=== PATIENT | male | born 1940 | race African-American/Black ===

== ENCOUNTER 2018-12-24 12:10 | Inpatient (IN) | payer OTHER ==
[~2018-12-24] VITALS: Ht 165.1 cm; Wt 67.5 kg
[2018-12-24 13:12] LABS: BASOPHILS 0.7 % (0.0-2.0); EOSINOPHILS 0.4 % (0.0-3.0); HEMATOCRIT 34.2 % (42.0-52.0); HEMOGLOBIN 11.3 gm/dL (14.0-18.0); LYMPHOCYTES 13.3 % (24.0-44.0); MCH 27.5 pg (26.0-34.0); MCV 83.4 fL (80.0-100.0); MONOCYTES 9.1 % (1.0-8.0); PLATELET COUNT 315 thou/uL (150-400); POLYS 76.5 % (36.0-66.0); RDW 14.4 % (10.5-14.5); WBC 10.4 thou/uL (4.0-11.0)
[2018-12-24 13:25] LABS: ANION GAP 7 mmol/L (7-16); BUN 46 mg/dL (7-18); CALCIUM 10.6 mg/dL (8.5-10.1); CHLORIDE 105 mmol/L (98-107); CO2 25 mmol/L (21-32); GLUCOSE 109 mg/dL (74-106); POTASSIUM 5.1 mmol/L (3.5-5.1); SODIUM 137 mmol/L (136-145)
[2018-12-24 13:30] VITALS: BP 135/63
[2018-12-24 13:32] LABS: ALBUMIN 2.7 g/dL (3.4-5.0); DIRECT BILIRUBIN < 0.1 mg/dL (<0.1-0.3); LIPASE 185 U/L (73-393); SGOT 19 U/L (15-37); SGPT 24 U/L (30-65); TOTAL BILIRUBIN 0.3 mg/dL (<0.1-1.0); TOTAL PROTEIN 7.6 g/dL (6.4-8.2)
[2018-12-24] MEDS ORDERED: HYDROCHLOROTHIA25 M2 PO (13:34)
[2018-12-24] MEDS ORDERED: LOSARTAN POTAS100 MG PO (13:34)
[2018-12-24] MEDS ORDERED: AMLODIPINE BESY10 MG PO (13:34)
[2018-12-24 14:00] VITALS: BP 138/68
[2018-12-24 14:10] VITALS: BP 142/59
[2018-12-24 14:40] VITALS: BP 169/65
[2018-12-24] MEDS ORDERED: LIPITOR 20 MG T20 M1 PO (15:05)
[2018-12-24] MEDS ORDERED: OMEPRAZOLE40 MG PO (15:06)
--- NOTE | 2018-12-24 18:22 | NUR ---
PATIENT ADIMIT TO UNIT AT 1450 FROM ER. A/O X4. NO SOB, NO DISDRESS NOTED. CONGESTED COUGH. DENIES PAIN. VSS. GUERDA KEEP MONITOR.
[2018-12-24 19:28] VITALS: BP 141/61
[2018-12-25 00:26] LABS: URINE BILIRUBIN NEGATIVE (Negative); URINE BLOOD NEGATIVE (Negative); URINE CLARITY CLEAR; URINE COLOR YELLOW; URINE GLUCOSE-RANDOM* NEGATIVE (Negative); URINE KETONES NEGATIVE (Negative); URINE LEUKOCYTES-REFLEX NEGATIVE (Negative); URINE NITRITE-REFLEX NEGATIVE (Negative); URINE PROTEIN (DIPSTICK) NEGATIVE (Negative); URINE SPECIFIC GRAVITY 1.015 (1.005-1.035); URINE UROBILINOGEN 0.2 E.U./dl (0.2-1.0)
--- NOTE | 2018-12-25 00:26 | NUR ---
PT AMBULATING TO BATHROOM WITH STANDBY ASSIST AND IS TOLERATING FAIR. TYLENOL PROVIDING RELIEF FOR RIGHT FLANK PAIN R/T COUGHING. RESTING COMFORTABLY. NO NEEDS VOICED. CALL LIGHT WITHIN REACH. WILL CONTINUE TO PROVIDE FREQUENT OBSERVATION.
[2018-12-25 03:19] VITALS: BP 129/57
[2018-12-25 05:24] LABS: HEMATOCRIT 29.2 % (42.0-52.0); HEMOGLOBIN 9.6 gm/dL (14.0-18.0); MCH 27.6 pg (26.0-34.0); MCV 83.6 fL (80.0-100.0); RBC 3.49 mil/uL (4.50-6.00); RDW 14.5 % (10.5-14.5); WBC 9.6 thou/uL (4.0-11.0)
[2018-12-25 05:41] LABS: ALBUMIN 2.1 g/dL (3.4-5.0); CALCIUM 9.5 mg/dL (8.5-10.1); TOTAL BILIRUBIN 0.3 mg/dL (<0.1-1.0); TOTAL PROTEIN 6.4 g/dL (6.4-8.2)
[2018-12-25 07:42] VITALS: BP 135/61
--- NOTE | 2018-12-25 08:04 | EKG ---
[address] [place] [address] ELECTROCARDIOGRAM REPORT Name: EMMETT VIEYRA Room #: 356-P ADM IN M.R.#: [id number] ������������������ Admission: 12/24/18 ������������������ Attend Phys: Shawnee Yousif MD Discharge: ������������������ Date of : 38 Report #: [id number] ����������������������������������������������������������������� [id number] THIS REPORT FOR: //name// [facility] ED Test Date: 2018-12-24 Test Time: 12:35:50 Pat Name: EMMETT VIEYRA Department: Room: 356 Gender: M Manager Of Internal Audit: Sohail Valdes : 1940 Requested By: Maykel Lantigua Order Number: [id number] MD: Tee Dixon Measurements Intervals [place] Rate: 88 P: 28 [place]: 186 QRS: 18 QRSD: 89 T: 67 QT: 338 QTc: 409 Interpretive Statements Sinus rhythm Borderline low voltage, extremity leads Compared to ECG 12/24/1998 09:07:00 Sinus bradycardia no longer present Electronically Signed On 12-25-2018 8:03:48 CDT by Tee Dixon [email or web address] ��������������������������������������������� <ELECTRONICALLY SIGNED> ���������������������������������������� By: Tee Dixon MD ��������������������������������������������� 12/25/18 08 1235 1235 Tee Dixon MD /CUCO
[2018-12-25 09:43] LABS: INR 1.1; PROTIME 11.5 Seconds (9.3-11.4)
--- NOTE | 2018-12-25 15:47 | NUR ---
INITIAL ASSESSMENT: SW reviewed chart and spoke with nursing and attending physician. Pt was admitted from home due to pneumonia/right sided pleural effusion. Pt with hx of CHF. Pt had thoracentesis earlier today. SW met with pt and at bedside. Introduced role of SW. Pt is alert/orientated x 4. Pt reports he and his live in a two level home. 2 steps to enter and 12 steps inside. Pt states that all needs can be met on one level. Prior to admission, pt was independent with ADLs. No use of DME. No hx of HH services or SNF/Rehab placement. Pt's PCP is Dr. Walt Cross. Plan is for pt to return home when medically stable. SW is following to assist as needed with discharge planning.
[2018-12-25 16:26] LABS: CLARITY CLOUDY; COLOR YELLOW; SOURCE RIGHT CHEST; TOTAL VOLUME 60 mL
[2018-12-25 16:30] VITALS: BP 144/61
[2018-12-25 16:32] LABS: BF NUCLEATED CELLS 996; BF RBC 1110
[2018-12-25 18:05] LABS: BF MACROPHAGE 6; BF NEUTROPHILS 73
--- NOTE | 2018-12-25 18:20 | NUR ---
PATIENT HAD RIGHT THORACENTESIS TODAY .TOLERATED WELL. NO SOB NOTED. POOR APPETITE. UP WITH STB. VSS. SLOWLY TOWARDS POC GOALS.
[2018-12-25 20:05] VITALS: BP 141/75
--- NOTE | 2018-12-26 04:31 | NUR ---
PT MAKING PROGRESS TOWARDS GOALS. ON ROOM AIR OVERNIGHT. PT REPORTS BREATHING MUCH EASIER SINCE THORACENTESIS WAS DONE. ONE EPISODE OF STERNAL DISCOMFORT. PT SAID HE FELT LIKE HE HAD ACID INDIGESTION SOON AFTER DRINKING A CHOCOLATE ENSURE. SENSATION SLIGHTLY RELIEVED WITH DRINKING SOME WATER. SENSATION ENDED AFTER TAKING ONE DOSE OF MAALOX.
[2018-12-26 05:28] LABS: HEMATOCRIT 28.3 % (42.0-52.0); HEMOGLOBIN 9.4 gm/dL (14.0-18.0); MCH 27.5 pg (26.0-34.0); MCHC 33.2 g/dL (28.0-37.0); MCV 82.7 fL (80.0-100.0); RBC 3.42 mil/uL (4.50-6.00); RDW 14.1 % (10.5-14.5); WBC 8.8 thou/uL (4.0-11.0)
[2018-12-26 05:30] VITALS: BP 133/63
[2018-12-26 05:45] LABS: CREATININE 2.1 mg/dL (0.7-1.3); POTASSIUM 4.4 mmol/L (3.5-5.1)
[2018-12-26 06:12] LABS: FOLIC ACID 15.6 ng/mL (8.6-58.9)
--- NOTE | 2018-12-26 07:00 | HC ---
[facility] [place] [address] CONSULTATION Name: AZALIAEMMETT Room #: 356-P [facility] IN M.R.#: [id number] Admission: 12/24/18 ������������������ Attend Phys: Shawnee Yousif MD Discharge: ������������������ Date of : 38 Report #: [id number] THIS REPORT FOR: //name// CC: Jeffrey Yousif DATE OF SERVICE: 12/25/2018 REFERRING PHYSICIAN: Dr. Yousif. REASON FOR REFERRAL: Pleural effusion. HISTORY OF PRESENT ILLNESS: The patient is an 78-year-old male who presents to the Emergency Room with a cough and dyspnea. Chest x-ray revealed right sided pleural effusion. A pulmonary consultation was requested. The patient was in his usual state of health until about 4 weeks ago, he started to lose his appetite. He states that he has lost about 15 pounds over the past month. Over the past week or so, he started to notice increasing dyspnea on exertion along with nonproductive cough. With worsening symptoms, he presented to the Emergency Room. He also complained of right shoulder pain with movement, also complained of right shoulder discomfort. Otherwise, the patient denies any febrile illness, night sweats or chills, productive cough, hemoptysis. The patient has smoked half a pack a day for most of his life until about 4 weeks ago. 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 PAST MEDICAL HISTORY: As mentioned above. He has a history of hypertension. Also, has a history of chronic reflux. PAST SURGICAL HISTORY: Status post prostatectomy years ago. ALLERGIES: None to medications. HOME MEDICATIONS: Include hydrochlorothiazide, amlodipine, losartan, Lipitor, omeprazole, hydrochlorothiazide 25 mg once a day, amlodipine 10 mg once a day, losartan 100 mg once a day, Lipitor 20 mg once a day, omeprazole harr-qyb-uoiymlm one tablet p.o. every day. FAMILY HISTORY: Notable for CVA in both parents. They both . [facility] [address] [place] [address] CONSULTATION Name: EMMETT VIEYRA Room #: 356-[facility] IN M.R.#: [id number] Admission: 12/24/18 ������������������ Attend Phys: Shawnee Yousif MD Discharge: ������������������ Date of : 38 Report #: [id number] SOCIAL HISTORY: Born and raised in [place]. He is . He denies any history of alcohol use. Tobacco use as mentioned above, having quit smoking about a month ago. He is retired, used to work as a crop farm helper at [employer]. REVIEW OF SYSTEMS: As mentioned above, otherwise 10-point system review negative. PHYSICAL EXAMINATION: GENERAL: He is awake, alert, in no distress. VITAL SIGNS: Temperature is 98.2 degrees Fahrenheit, pulse 76, respiratory rate is 16, blood pressure 135/61 mmHg, saturation 95%. HEENT: Normocephalic, atraumatic. NECK: Supple, without any lymphadenopathy or thyromegaly. CHEST: Breath sounds are absent in the right base. The left lung field is clear. CARDIOVASCULAR: Normal S1, S2. There are no murmurs or gallop. There is no JVD. There is no carotid bruit. Pulses are 2+/4+ bilaterally. ABDOMEN: Soft, nontender, no organomegaly or masses felt. GENITOURINARY: Deferred. RECTAL: Deferred. EXTREMITIES: There is no cyanosis or edema. Mild clubbing is suggested on the digits bilaterally. NEUROLOGIC: Grossly intact. LABORATORY DATA: Chest x-ray shows moderate to large right-sided pleural effusion. Electrolytes normal except for creatinine of 2.0. Liver enzymes are grossly unremarkable. WBC 9600, hemoglobin 9.6, platelets are normal. IMPRESSION: 1. Large right pleural effusion in this an 78-year-old male with recent weight loss. He has smoked in the past until 4 weeks ago. No recent febrile illness. Suspect malignancy as a primary cause for these pleural effusion. Agree with thoracentesis. 2. History of tobacco use, based on PFTs as an outpatient will be helpful. 3. Renal insufficiency. No prior history of chronic renal disease. This may be acute kidney injury. 4. Hypertension. RECOMMENDATION AND DISCUSSION: I have discussed the above findings with the patient and rationale for proceeding with thoracentesis. I also discussed the need for CT chest. Following a discussion they voiced understanding. Further recommendation: Pending results of the chest CT and pleural fluid [address] [address] CONSULTATION Name: VIEYRAEMMETT Room #: 356-P ADM IN M.R.#: [id number] Admission: 12/24/18 ������������������ Attend Phys: Shawnee Yousif MD Discharge: ������������������ Date of : 38 Report #: [id number] studies. Thank you for this consultation. ��������������������������������������������� <ELECTRONICALLY SIGNED> ���������������������������������������� By: Medhat Elizabeth MD ��������������������������������������������� 12/26/18 0700 1614 0010 Medhat Elizabeth MD /nt
[2018-12-26 07:23] VITALS: BP 111/52
[2018-12-26 08:27] LABS: SOURCE THORACENTESIS
[2018-12-26 11:26] LABS: INR 1.1; PROTIME 11.7 Seconds (9.3-11.4)
--- NOTE | 2018-12-26 13:03 | NUR ---
SW reviewed chart and spoke with nursing and attending physician. Pt had thoracentesis yesterday and plan for a bronch tomorrow. Discharge plan is for pt to discharge home when medically stable. FIDELINA is following to assist as needed with discharge planning.
[2018-12-26 13:07] LABS: BODY FLUID AMYLASE 84 U/L (()); BODY FLUID GLUCOSE 111 mg/dL (()); BODY FLUID LDH 233 IU/L (()); BODY FLUID PROTEIN 4.2 g/dL (())
[2018-12-26 15:18] VITALS: BP 133/60
--- NOTE | 2018-12-26 18:29 | NUR ---
ASSUMED PATIENT CARE AT 0700. A/O X4. PLEASANT. NO SOB NOTED. DENIES PAIN. WILL NPO AFTER MIDNIGHT TO HAVE BRONCHOSCOPY WITH DR ABEL IN AM. KEEP MONIOTOR.
[2018-12-26 19:51] VITALS: BP 143/64
[2018-12-27 04:17] VITALS: BP 134/54
--- NOTE | 2018-12-27 07:29 | NUR ---
Assumed pt care at 7am.Pt left for procedure at 0720 per bed accompanined by phlebotomy tech.Will continue to monitor.
[2018-12-27 07:34] VITALS: BP 108/88
--- NOTE | 2018-12-27 07:41 | NUR ---
PT MAKING SLOW PROGRESS TOWARDS GOALS. SEE CHARTING. DENIES ANY SOA WHILE MOVING AROUND THE ROOM. ON ROOM AIR THROUGHOUT THE NIGHT.
--- NOTE | 2018-12-27 12:12 | NUR ---
SW reviewed chart and spoke with nursing and attending physician. Pt had bronchoscopy with bx earlier today. Discharge home is anticipated for tomorrow. FIDELINA is following to assist as needed with discharge planning.
[2018-12-27 12:24] VITALS: BP 149/61
[2018-12-27 16:25] VITALS: BP 146/65
[2018-12-27 21:19] VITALS: BP 135/65
--- NOTE | 2018-12-28 04:13 | NUR ---
PATIENT ARRIVED ON UNIT FROM 3W. PATIENT ALERT AND ORIENTED X4. C/O BEING COLD, ROOM AT FIRST WAS COLD, HAD HEAT FIXED. DENIES PAIN. BREATH SOUNDS ON THE L WERE CLEAR BUT DIM ON THE R. UP IN ROOM AD YOLY. SLEPT OFF AND ON DURING SHIFT.
[2018-12-28 04:17] VITALS: BP 136/57
[2018-12-28 05:36] LABS: HEMATOCRIT 30.5 % (42.0-52.0); HEMOGLOBIN 9.9 gm/dL (14.0-18.0); MCH 27.2 pg (26.0-34.0); MCHC 32.4 g/dL (28.0-37.0); MCV 83.8 fL (80.0-100.0); RBC 3.65 mil/uL (4.50-6.00); RDW 14.5 % (10.5-14.5); WBC 10.6 thou/uL (4.0-11.0)
[2018-12-28 05:48] LABS: CALCIUM 10.2 mg/dL (8.5-10.1); CREATININE 2.3 mg/dL (0.7-1.3); POTASSIUM 4.3 mmol/L (3.5-5.1)
[2018-12-28 08:25] VITALS: BP 132/61
--- NOTE | 2018-12-28 12:18 | NUR ---
DISCHARGE NOTE: SW reviewed chart and spoke with nursing and attending physician. Pt was transferred to from . Had thoracentesis earlier today and will discharge home later today. No discharge needs anticipated. FIDELINA is following to assist as needed with discharge planning.
--- NOTE | 2018-12-28 13:06 | PATH ---
[facility] [address] [place] [address] PATHOLOGY RPT PROCEDURE Name: EMMETT VIEYRA JR Room #: 423-1 ADM IN M.R.#: [id number] ������������������ Admission: 12/24/18 ������������������ Date of : 38 Discharge: Report #: [id number] Path Case #: [id number] Note LCA Accession Number: [id number] TESTS RESULT FLAG UNITS REF RANGE LAB Clinician Provided Cytology Information No. of containers..01 Other (Miscellaneous) Source: 01 PLEURAL FLUID DIAGNOSIS: 02 PLEURAL FLUID NEGATIVE FOR MALIGNANT CELLS. THIS INTERPRETATION INCLUDES EVALUATION OF A CELL BLOCK. RARE REACTIVE MESOTHELIAL CELLS IN A BACKGROUND OF MARKED ACUTE INFLAMMATION. Pathologist ICD10: 02 J90 Signed out by: Naida Esquivel MD, Pathologist NPI- [id number] Performed by: Mya Lundberg, Fermenter Champagne ([facility]) Gross description: 01 20ML, DARK YELLOW, CLOUDY /LCS FLAG LEGEND: L-Low Normal,H-High Normal,LL-Alert Low,HH-Alert High <-Panic Low,>-Panic High,A-Abnormal,AA-Critical Abnormal Performed at: [address] [place] [address] Farhat Suero MD, [address] [address] Naida Esquivel MD, Specimen Comment: A courtesy copy of this report has been sent to Specimen Comment: [phone], , , . Specimen Comment: Report sent to ,DR ESPINO,DR SOLIMAN / DR PRETTY Specimen Comment: A duplicate report has been generated due to demographic updates. Performed at: [address], [place], [place] [id number] MD Farhat Suero MD Phone: [phone]
[2018-12-28 13:56] VITALS: BP 132/61
--- NOTE | 2018-12-28 14:31 | NUR ---
PT IN BED RESTING WITHOUT DISTRES S/S.ASSESSMENT COMPLETED.AM MEDS GIVEN WITH BREAKFAST AND WELL TOLERATED.RECEIVED CALL FROM [employer].HE SAID DR HAYES WILL BE DOING RT US GUIDED THORACENTESIS ON PT TODAY.CONSENT SIGNED BY PT AND AT 0900,PT LEFT FOR PROCEDURE AND RETURNED TO ROOM ONE HOUR LATER.PER REPORT,1.1LITER OF FLUID WAS REMOVED TODAY.DR BARRERA ROUNDED ON PT AND DC ORDER NOTED.DC SUMMARY COMPILED AND REVIEWED WITH PT AND .PT WILL BED DC HOME LATER THIS AFTERNOON WHEN IV ABT COMPLETED.NO C/O PAIN OR SOA.WILL CONTINUE TO MONITOR.
--- NOTE | 2018-12-29 16:06 | PATH ---
[facility] [address] [place] [address] PATHOLOGY RPT PROCEDURE Name: EMMETT VIEYRA JR Room #: 423-1 DIS IN M.R.#: [id number] ������������������ Admission: 12/24/18 ������������������ Date of : 38 Discharge: 12/28/18 Report #: [id number] Path Case #: [id number] Note LCA Accession Number: [id number] TESTS RESULT FLAG UNITS REF RANGE LAB Clinician Provided Cytology Information No. of containers..01 Other (Miscellaneous) Source: [A] 01 MICRO BRUSHTIP DIAGNOSIS: [A] 02 MICRO BRUSHTIP SUSPICIOUS FOR MALIGNANCY. REACTIVE BRONCHIAL CELLS ARE PRESENT. PULMONARY MACROPHAGES (DUST CELLS) ARE PRESENT. NUMEROUS GROUPS OF SMALL BLUE ATYPICAL CELLS PRESENT. Comment: The concurrent biopsy tissue shows aggregates of small blue cells along with necrosis. Immunohistochemical stains are pending on the biopsy tissue [id number]. Please refer to a separate report to follow. Dr. Taylor Cerrato has seen this case and concurs with my interpretation. Pathologist ICD10: 02 J90 Signed out by: 02 Naida Esquivel MD, Pathologist NPI- [id number] Performed by: Tong Waters, Food And Beverage Manager ([facility]) Gross description: 01 4ML, RED TINTED, CLOUDY /LCS FLAG LEGEND: L-Low Normal,H-High Normal,LL-Alert Low,HH-Alert High <-Panic Low,>-Panic High,A-Abnormal,AA-Critical Abnormal Performed at: 01 [facility] [address] [facility] [place] [address] Farhat Suero MD, [address] [address] Naida Esquivel MD, Specimen Comment: A courtesy copy of this report has been sent to Specimen Comment: [phone], , , . Specimen Comment: Report sent to DR PLAZA,DR ESPINO,DR SOLIMAN / DR PRETTY [address] [address] PATHOLOGY RPT PROCEDURE Name: VIEYRAEMMETT JR Room #: 423-1 DIS IN M.R.#: [id number] ������������������ Admission: 12/24/18 ������������������ Date of : 38 Discharge: 12/28/18 Report #: [id number] Path Case #: [id number] Performed at: 01 [facility] [address], [place], [place] [address] MD Farhat Suero MD Phone: [phone]
--- NOTE | 2018-12-29 16:06 | PATH ---
[facility] [address] [place] [address] PATHOLOGY RPT PROCEDURE Name: EMMETT VIEYRA JR Room #: 423-1 DIS IN M.R.#: [id number] ������������������ Admission: 12/24/18 ������������������ Date of : 38 Discharge: 12/28/18 Report #: [id number] Path Case #: [id number] Note LCA Accession Number: [id number] TESTS RESULT FLAG UNITS REF RANGE LAB Clinician Provided Cytology Information No. of containers..01 Other (Miscellaneous) Source: [A] 01 RLL BAL DIAGNOSIS: [A] 02 RLL BAL SUSPICIOUS FOR MALIGNANCY. SCANT CELLULARITY. REACTIVE BRONCHIAL CELLS ARE PRESENT. PULMONARY MACROPHAGES (DUST CELLS) ARE PRESENT. Comment: A single group of cells with small blue cells showing atypical features is present. Definite cellular features are not evident. These cells are similar to the ones noted in [id number] and [id number]. Please refer to separate reports for details. Dr. Xochilt Cerrato has seen this case and concurs with my interpretation. Pathologist ICD10: 02 J90 Signed out by: Naida Esquivel MD, Pathologist NPI- [id number] Performed by: Tong Waters, Wood Cut Engraver ([facility]) Gross description: 01 15ML, PINK, CLOUDY /LCS FLAG LEGEND: L-Low Normal,H-High Normal,LL-Alert Low,HH-Alert High <-Panic Low,>-Panic High,A-Abnormal,AA-Critical Abnormal Performed at: 01 [facility] [address] [facility] [address] [place] [address] Farhat Suero MD, [address] [address] Naida Esquivel MD, Specimen Comment: A courtesy copy of this report has been sent to Specimen Comment: [phone], , , . Specimen Comment: Report sent to DR PLAZA,DR ESPINO,DR SOLIMAN / DR PRETTY [address] [address] PATHOLOGY RPT PROCEDURE Name: VIEYRA,EMMETT Room #: 423-1 DIS IN M.R.#: [id number] ������������������ Admission: 12/24/18 ������������������ Date of : 38 Discharge: 12/28/18 Report #: [id number] Path Case #: [id number] Performed at: 01 [facility] [place] [address], [place], [place] [id number] MD Farhat Suero MD Phone: [phone]
--- NOTE | 2019-01-01 15:05 | PATH ---
[facility] [place] [address] PATHOLOGY RPT PROCEDURE Name: EMMETT VIEYRA Room #: 423-1 DIS IN M.R.#: [id number] ������������������ Admission: 12/24/18 ������������������ Date of : 38 Discharge: 12/28/18 Report #: [id number] Path Case #: [id number] LCA Accession Number: [id number] . 01 Material submitted: . PART A: bronchus - SUBCARINAL TISSUE PART B: bronchus - RLL TISSUE BIOPSY . 01 Clinical history: . Shortness of breath, cough one week. . 02 Diagnosis: A. 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 . B. 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 . 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 02 Comment: Properly controlled immunohistochemical stains are performed on block A1. The tumor shows dot-like reactivity with AE1/AE3. It shows strong nuclear reactivity with TTF-1, faint granular reactivity is noted on synaptophysin along with a strong membranous reactivity identified on CD56. The tumor is nonreactive to p63 and CD45. . Properly controlled immunohistochemical stains are performed on block B1 to confirm the presence of tumor amidst blood. Approximately 50% of these sample shows small cell carcinoma, with strong nuclear reactivity identified with TTF-1 and no reactivity identified on CD45. . [employer] H and E slides were co-reviewed by Dr. Oscar Cerrato who concurs with my diagnosis. Findings of this case are conveyed to Dr. Billy Mtz on 12/29/18 at approximately 2:20 p.m. . 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 02 Electronically signed: . Naida Esquivel MD, Pathologist NPI- [id number] . 01 Gross description: . A. Received in formalin labeled "Emmett Vieyra Jr., subcarinal tissue [address] [address] PATHOLOGY RPT PROCEDURE Name: EMMETT VIEYRA JR Room #: 423-1 DIS IN M.R.#: [id number] ������������������ Admission: 12/24/18 ������������������ Date of : 38 Discharge: 12/28/18 Report #: [id number] Path Case #: [id number] biopsy" is a 1.5 x 0.2 x 0.1 cm aggregate of red-malhotra soft tissue fragments. The specimen is submitted in cassette A1. . B. Received in formalin labeled "Fredi Ramos., Mace, RLL tissue biopsy" is a 2.0 x 0.5 x 0.1 cm aggregate of red-brown soft tissue fragments. The specimen is submitted in cassette B1. ([facility]; 12/28/2018) SYC/SYC . 02 Pathologist provided ICD-10: C7A.1 . 02 CPT . 204177, 461832, D39729, I41674 Specimen Comment: A courtesy copy of this report has been sent to Specimen Comment: [phone], , , . Specimen Comment: Report sent to ,DR PRETTY,DR ESPINO / DR SOLIMAN Performed at: [address] [facility], [place], [place] [id number] MD Farhat Suero MD Phone: [phone] Performed at: [address] [facility] [id number] MD Naida Esquivel MD Phone: [phone]
--- NOTE | 2019-01-02 14:06 | PATH ---
[facility] [address] [place] [address] PATHOLOGY RPT PROCEDURE Name: EMMETT VIEYRA JR Room #: 423-1 DIS IN M.R.#: [id number] ������������������ Admission: 12/24/18 ������������������ Date of : 38 Discharge: 12/28/18 Report #: [id number] Path Case #: [id number] Note LCA Accession Number: [id number] TESTS RESULT FLAG UNITS REF RANGE LAB Clinician Provided Cytology Information No. of containers..01 Slide Source: RLL BIOPSY SLIDES DIAGNOSIS: RLL BIOPSY SLIDES INADEQUATE, INSUFFICIENT CELLS FOR STUDY. ESSENTIALLY ACELLULAR SPECIMEN. SLIDES ONLY COMPRISED OF PERIPHERAL BLOOD. EXTENSIVE AIR DRYING ARTIFACT. Pathologist ICD10: 02 J90 Signed out by: 02 Naida Esquivel MD, Pathologist NPI- [id number] Performed by: 01 Tong Waters, Filing Clerk ([facility]) FLAG LEGEND: L-Low Normal,H-High Normal,LL-Alert Low,HH-Alert High <-Panic Low,>-Panic High,A-Abnormal,AA-Critical Abnormal Performed at: [address] [place] [address] Farhat Suero MD, [address] [address] Naida Esquivel MD, Specimen Comment: A courtesy copy of this report has been sent to Specimen Comment: [phone], , , . Specimen Comment: Report sent to DR PLAZA,DR PRETTY,DR ESPINO / DR SOLIMAN Specimen Comment: A duplicate report has been generated due to demographic updates. Performed at: [address], [place], [place] [id number] MD Farhat Suero MD Phone: [phone]
--- NOTE | 2019-01-02 14:06 | PATH ---
[facility] [place] [address] PATHOLOGY RPT PROCEDURE Name: EMMETT VIEYRA JR Room #: 423-1 DIS IN M.R.#: [id number] ������������������ Admission: 12/24/18 ������������������ Date of : 38 Discharge: 12/28/18 Report #: [id number] Path Case #: [id number] Note LCA Accession Number: [id number] TESTS RESULT FLAG UNITS REF RANGE LAB Clinician Provided Cytology Information No. of containers..01 Other (Miscellaneous) Source: [A] 01 RLL BRUSHING DIAGNOSIS: [A] 02 RLL BRUSHING SUSPICIOUS FOR MALIGNANCY. REACTIVE BRONCHIAL CELLS ARE PRESENT. PULMONARY MACROPHAGES (DUST CELLS) ARE PRESENT. FEW SHEETS OF MARKEDLY ATYPICAL SMALL BLUE CELL AGGREGATES. Comment: Examination shows scattered groups of small blue cells with nuclear moulding and nuclear overlapping. These cells are similar to the ones noted on the biopsy tissue [id number] which is currently pending immunohistochemical stains. Please refer to a separate report to follow. Dr.Kevin Cerrato has seen this case and concurs with my interpretation. Pathologist ICD10: 02 J90 Signed out by: Naida Esquivel MD, Pathologist NPI- [id number] Performed by: Tong Waters, Erection Shop Supervisor ([facility]) Gross description: 01 3ML, COLORLESS, CLEAR /LCS FLAG LEGEND: L-Low Normal,H-High Normal,LL-Alert Low,HH-Alert High <-Panic Low,>-Panic High,A-Abnormal,AA-Critical Abnormal Performed at: [address] [place] [address] Farhat Suero MD, [address] [address] Naida Esquivel MD, Specimen Comment: A courtesy copy of this report has been sent to Specimen Comment: [phone], , , . Specimen Comment: Report sent to DR PLAZA,DR ESPINO,DR SOLIMAN / DR PRETTY [address] [address] PATHOLOGY RPT PROCEDURE Name: EMMETT VIEYRA JR Room #: 423-1 DIS IN M.R.#: [id number] ������������������ Admission: 12/24/18 ������������������ Date of : 38 Discharge: 12/28/18 Report #: [id number] Path Case #: [id number] Specimen Comment: A duplicate report has been generated due to demographic updates. Performed at: 01 [facility] [place] [address] [facility] [address], [place], [place] [id number] MD Farhat Suero MD Phone: [phone]
--- NOTE | 2019-01-02 14:06 | PATH ---
[facility] [address] [place] [address] PATHOLOGY RPT PROCEDURE Name: EMMETT VIEYRA JR Room #: 423-1 DIS IN M.R.#: [id number] ������������������ Admission: 12/24/18 ������������������ Date of : 36 Discharge: 12/28/18 Report #: [id number] Path Case #: [id number] Note [facility] Accession Number: [id number] TESTS RESULT FLAG UNITS REF RANGE LAB Clinician Provided Cytology Information No. of containers..01 Slide Source: SUBCARINAL BIOPSY DIAGNOSIS: SUBCARINAL BIOPSY INCONCLUSIVE. SCANT CELLULARITY. REACTIVE BRONCHIAL CELLS ARE PRESENT. RARE ATYPICAL SMALL BLUE CELLS PRESENT. Comment: Single group of atypical small blue cells are present. The scant nature of these cells precludes a definitive interpretation. The concurrent biopsy tissue [id number] is pending due to the immunohistochemical stains. The biopsy tissue shows aggregates of small blue cells. Please refer to a separate report for details. Pathologist ICD10: 02 J90 Signed out by: 02 Naida Esquivel MD, Pathologist NPI- [id number] Performed by: 01 Tong Waters, Feed In Worker ([facility]) FLAG LEGEND: L-Low Normal,H-High Normal,LL-Alert Low,HH-Alert High <-Panic Low,>-Panic High,A-Abnormal,AA-Critical Abnormal Performed at: 01 [facility] [address] [place] [address] Farhat Suero MD, 02 [facility] [address] [address] Naida Esquivel MD, Specimen Comment: A courtesy copy of this report has been sent to Specimen Comment: [phone], , , . Specimen Comment: Report sent to DR PLAZA / DR PRETTY,DR ESPINO,DR SOLIMAN Specimen Comment: A duplicate report has been generated due to demographic [facility] [address] [place] [address] PATHOLOGY RPT PROCEDURE Name: EMMETT VIEYRA Room #: 423-1 DIS IN M.R.#: [id number] ������������������ Admission: 12/24/18 ������������������ Date of : 38 Discharge: 12/28/18 Report #: [id number] Path Case #: [id number] updates. Performed at: 01 [facility] [address], [place], [place] [id number] MD Farhat Suero MD Phone: [phone]
--- NOTE | 2019-01-02 14:06 | PATH ---
[facility] [address] [place] [address] PATHOLOGY RPT PROCEDURE Name: EMMETT VIEYRA JR Room #: 423-1 DIS IN M.R.#: [id number] ������������������ Admission: 12/24/18 ������������������ Date of : 38 Discharge: 12/28/18 Report #: [id number] Path Case #: [id number] Note [facility] Accession Number: [id number] TESTS RESULT FLAG UNITS REF RANGE LAB Clinician Provided Cytology Information No. of containers..01 Other (Miscellaneous) Source: PLERUAL FLUID DIAGNOSIS: 02 PLERUAL FLUID NEGATIVE FOR MALIGNANT CELLS. MESOTHELIAL CELLS ARE PRESENT. THIS INTERPRETATION INCLUDES EVALUATION OF A CELL BLOCK. Pathologist ICD10: 02 J90 Signed out by: Naida Esquivel MD, Pathologist NPI- [id number] Performed by: Tong Waters, Blend Technician ([facility]) Gross description: 01 40ML, ORANGE, CLOUDY /LCS FLAG LEGEND: L-Low Normal,H-High Normal,LL-Alert Low,HH-Alert High <-Panic Low,>-Panic High,A-Abnormal,AA-Critical Abnormal Performed at: [address] [place] [address] Farhat Suero MD, [address] [address] Naida Esquivel MD, Specimen Comment: A courtesy copy of this report has been sent to Specimen Comment: [phone], , , . Specimen Comment: Report sent to DR ABEL,DR ESPINO,DR SOLIMAN / DR PRETTY Specimen Comment: A duplicate report has been generated due to demographic updates. Performed at: [address], [place], [place] [id number] MD Farhat Suero MD Phone: [phone]
== END 2018-12-28 17:00 | disposition home or self-care (01) | DRG 177 ==
LOC: ER 12:10 → 3W 14:09 → EROBS 14:09 → 3W 14:10 → 4E 12-27 20:31 → ENTRNSPT 12-28 16:29 → 4E 12-28 17:00
PROVIDERS: Hospitalist; Internal Medicine Pulmonary Disease; Nurse Practitioner; ADMIT Internal Medicine
DX: J15.6 Pneumonia due to other Gram-negative bacteria (principal); E43 Unspecified severe protein-calorie malnutrition; J91.8 Pleural effusion in other conditions classified elsewhere; J98.11 Atelectasis; N18.4 Chronic kidney disease, stage 4 (severe); I12.9 Hypertensive chronic kidney disease with stage 1 through stage 4 chronic kidney disease, or unspecified chronic kidney disease; K21.9 Gastro-esophageal reflux disease without esophagitis; Z82.3 Family history of stroke; Z68.24 Body mass index [BMI] 24.0-24.9, adult; Z79.899 Other long term (current) drug therapy
CPT/HCPCS: 10080; 10783; 62110; 62900; 70005

== ENCOUNTER → 2019-01-04 | Outpatient (CLI) | payer OTHER ==
[~2019-01-04] MED LIST: AMLODIPINE BESY10 MG PO; HYDROCHLOROTHIA25 M2 PO; LIPITOR 20 MG T20 M1 PO; LOSARTAN POTAS100 MG PO; OMEPRAZOLE40 MG PO
== END ==
LOC: RAD 12:27
DX: J90 Pleural effusion, not elsewhere classified (principal)

== ENCOUNTER 2019-01-08 09:49 | Emergency (ER) | payer OTHER ==
[~2019-01-08] VITALS: Ht 162.6 cm; Wt 64.9 kg
[2019-01-08 10:45] LABS: ABSOLUTE NEUTROPHILS 5.5 thou/uL (1.4-8.2); BASOPHILS 0.8 % (0.0-2.0); EOSINOPHILS 1.4 % (0.0-3.0); HEMATOCRIT 28.8 % (42.0-52.0); HEMOGLOBIN 9.5 gm/dL (14.0-18.0); MCH 27.2 pg (26.0-34.0); MCHC 32.9 g/dL (28.0-37.0); MCV 82.5 fL (80.0-100.0); MONOCYTES 9.9 % (1.0-8.0); PLATELET COUNT 433 thou/uL (150-400); POLYS 69.9 % (36.0-66.0); RBC 3.49 mil/uL (4.50-6.00); RDW 14.5 % (10.5-14.5); WBC 7.8 thou/uL (4.0-11.0)
[2019-01-08 10:55] LABS: ANION GAP 7 mmol/L (7-16); BUN 43 mg/dL (7-18); CALCIUM 10.4 mg/dL (8.5-10.1); CHLORIDE 106 mmol/L (98-107); CO2 26 mmol/L (21-32); GLUCOSE 92 mg/dL (74-106); POTASSIUM 5.2 mmol/L (3.5-5.1); SODIUM 139 mmol/L (136-145)
[2019-01-08 10:58] LABS: BE(vivo) -1.5 mmol/L (-2 to +3); PCO2 37.9 mmHg (35.0-45.0); PO2 61.2 mmHg (80.0-100.0); pH 7.401 (7.360-7.450); sO2 91.6 % (92.0-98.0)
[2019-01-08 11:05] LABS: ALBUMIN 2.3 g/dL (3.4-5.0); SGOT 21 U/L (15-37); SGPT 19 U/L (30-65); TOTAL BILIRUBIN 0.2 mg/dL (<0.1-1.0); TOTAL PROTEIN 7.1 g/dL (6.4-8.2); TROPONIN-I <0.06 ng/mL (<0.06)
--- NOTE | 2019-01-08 14:00 | EKG ---
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: ARI : 1940 Requested By: Anabel Traore Order Number: [id number] MD: Tee Dixon Measurements Intervals [place] Rate: 84 P: 71 NC: 184 QRS: 28 QRSD: 85 T: 66 QT: 357 QTc: 422 Interpretive Statements Sinus rhythm Low voltage, extremity leads Compared to ECG 12/24/2018 12:35:50 No significant changes Electronically Signed On 01-08-2019 14:00:21 CDT by Tee Dixon [email or web address] ��������������������������������������������� <ELECTRONICALLY SIGNED> ���������������������������������������� By: Tee Dixon MD ��������������������������������������������� 01/08/19 1400 [id number] MD OSWALDO Li
[2019-01-08 14:51] VITALS: BP 148/57
== END 2019-01-08 14:52 | disposition home or self-care (01) ==
LOC: EDBD 09:49 → ER 09:49
PROVIDERS: Physician Assistant
DX: J90 Pleural effusion, not elsewhere classified (principal); C34.90 Malignant neoplasm of unspecified part of unspecified bronchus or lung; M54.9 Dorsalgia, unspecified; I12.9 Hypertensive chronic kidney disease with stage 1 through stage 4 chronic kidney disease, or unspecified chronic kidney disease; N18.4 Chronic kidney disease, stage 4 (severe); K21.9 Gastro-esophageal reflux disease without esophagitis; F17.210 Nicotine dependence, cigarettes, uncomplicated

== ENCOUNTER 2019-01-12 20:18 | Inpatient (IN) | payer OTHER ==
[~2019-01-12] VITALS: Ht 256.5 cm; Wt 63.3 kg
[2019-01-12 20:29] VITALS: BP 141/62
[2019-01-12 21:36] LABS: HEMOGLOBIN 9.8 gm/dL (14.0-18.0); MCH 26.9 pg (26.0-34.0); MCHC 32.7 g/dL (28.0-37.0); MCV 82.3 fL (80.0-100.0); RBC 3.65 mil/uL (4.50-6.00); RDW 14.8 % (10.5-14.5); WBC 7.5 thou/uL (4.0-11.0)
[2019-01-12 21:58] LABS: ANION GAP 8 mmol/L (7-16); BUN 45 mg/dL (7-18); CALCIUM 10.3 mg/dL (8.5-10.1); CHLORIDE 102 mmol/L (98-107); CO2 28 mmol/L (21-32); CREATININE 2.2 mg/dL (0.7-1.3); GLUCOSE 104 mg/dL (74-106); POTASSIUM 5.6 mmol/L (3.5-5.1); SODIUM 138 mmol/L (136-145)
[2019-01-12 22:09] LABS: ALBUMIN 2.4 g/dL (3.4-5.0); MAGNESIUM 1.8 mg/dL (1.8-2.4); SGOT 20 U/L (15-37); SGPT 15 U/L (30-65); TOTAL BILIRUBIN 0.2 mg/dL (<0.1-1.0); TOTAL PROTEIN 7.4 g/dL (6.4-8.2); TROPONIN-I <0.06 ng/mL (<0.06)
[2019-01-12 22:43] VITALS: BP 140/54
[2019-01-12 22:55] VITALS: BP 157/62
[2019-01-12 23:10] VITALS: BP 164/66
[2019-01-12] MEDS ORDERED: OXYCODON-ACETA1 EAC1 PO (23:25)
[2019-01-12] MEDS ORDERED: ONDANSETRON HCL4 M2 PO (23:27)
[2019-01-12] MEDS ORDERED: REMERON15 MG PO (23:29)
--- NOTE | 2019-01-13 01:04 | NUR ---
Received pt from ED at 2144. Pt resting in bed. AOX4. VSS. Family at bedside. No skin issues. Pt still having back pain. Gave morphine onetime. No skin issues. Breathing regular. Right lung sounds diminished at base. Pt denies nausea. IV left AC saline lock. No identified needs at the moment. Will continue to monitor.
[2019-01-13 04:15] VITALS: BP 159/71
[2019-01-13 07:19] VITALS: BP 144/62
--- NOTE | 2019-01-13 14:21 | NUR ---
care of pt assumed this am @ ~0700. pt noted to be awake, but drowsy this am. pt's arrived early am, she is very attentive to her and also a son at bs today. pt had denied any n/v/d today. pt co rt chest (non cardiac) discomfort (especially when coughing) 8/10 today, requested pain medication w/ relief of 0/10. pt use of urinal in bed. pt w/ a very poor appetite for his breakfast and lunch today, given menu to try to customize a meal to his liking. pt noted to have food brought to him by family members. dr hernandez at bs this am, informed pt of pending IR procedure on Tuesday to rt pleural effusion. pt has had a very relaxing, calm and restful Tuesday thus far.
[2019-01-13 16:38] VITALS: BP 151/64
[2019-01-13 19:30] VITALS: BP 136/59
--- NOTE | 2019-01-14 03:06 | NUR ---
SLEPT MOST OF SHIFT. VISITED WITH A LOT OF FAMILY DURING EVENING SHIFT. TURNS SELF. VOIDING PER URINAL. MOROPHINE GIVEN PRN FOR PAIN WITH NOTED RELIEF. REMAINS WITH SOME SHORTNESS OF AIR WITH ACTIVITY. WORKING ON GOALS AND PLAN OF CARE FOR NOC. PROGRESSING TOWARDS GOALS OF PLEURAL DRAIN PLACEMENT ON TUESDAY. CONTINUE TO ASSES CLOSELY.
[2019-01-14 03:45] VITALS: BP 132/57
[2019-01-14 06:08] LABS: CREATININE 1.7 mg/dL (0.7-1.3); POTASSIUM 5.4 mmol/L (3.5-5.1)
[2019-01-14 07:03] VITALS: BP 146/63
--- NOTE | 2019-01-14 16:27 | NUR ---
care of pt assumed this am @ ~0700. pt veralized a good night's sleep last noc. 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 pt on room air, co of soa w/ activity & entended conversation w/ visitors. pt request pain medication for discomfort to lower and mid back 02/24, given po pain medication w/ pain relief 0. pt w/ a fair appetite today, noted family bringing in outside food for pt, but it is not compliant w/ a carb control, renal nor heart healthy diet. pt w/ fair po fluids intake today. pt aware of IR drain catheter placement tomorrow, need for consent to be signed by pt. pt has been busy w/ family and friends visiting today.
[2019-01-14 20:00] VITALS: BP 136/64
[2019-01-15] VITALS (7 sets, daily range): BP systolic 116–142; BP diastolic 54–75
--- NOTE | 2019-01-15 02:54 | NUR ---
SLEPT MOST OF SHIFT. REMAINS AT BEDSIDE. WORKING ON GOALS AND PLAN OF CARE FOR NOC. PROGRESSING TOWARDS GOALS FOR AM PROCEDURE. NPO PAST MIDNIGHT. PAIN MEDICATION PRN WITH NOTED RELIEF. TURNS SELF AND ASSIST UP WITH STANDBY ASSIST NEEDED. CONTINUE TO ASSES CLOSLY.
[2019-01-15 07:55] LABS: INR 1.1; PROTIME 11.5 Seconds (9.3-11.4)
--- NOTE | 2019-01-15 07:55 | EKG ---
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: 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: ТАТЬЯНА : 1940 Requested By: Calvin Hercules Order Number: [id number] MD: Jean Claude Saunders Measurements Intervals [place] Rate: 72 P: 64 IN: 175 QRS: 19 QRSD: 92 T: 64 QT: 356 QTc: 390 Interpretive Statements Sinus rhythm Abnormal R-wave progression, early transition Compared to ECG 01/08/2019 10:18:52 No significant changes Electronically Signed On 01-15-2019 7:55:43 CDT by Jean Claude Saunders [email or web address] ��������������������������������������������� <ELECTRONICALLY SIGNED> ���������������������������������������� By: Jean Claude Saunders MD, [facility] ��������������������������������������������� 01/15/19 0755 32 32 Jean Claude Saunders MD, [facility] /EPI
--- NOTE | 2019-01-15 09:34 | NUR ---
ASSESSMENT: CM REVIEWED CHART AND MET WITH PATIENT AT THE BEDSIDE. PT WAS ADMITTED WITH RIGHT PLEURAL EFFUSION AND IS TO HAVE A PLURX CATH PLACED TODAY. PT REPORTS THAT HE LIVES IN A HOUSE WITH HIS . PT REPORTS HAVING 2 STEPS WITH HANDRAILS TO ENTER AND NO STEPS HE HAS TO USE ONCE INSIDE. PT REPORTS THAT HE AMBULATES INDEPENDENTLY AND IS INDEPENDENT WITH ADLS. PT REPORTS HE HAS NOT HAD HH IN THE PAST NOR BEEN TO A SNF. CM DISCUSSED ROLE. PT DOES NOT ANTICIPATE HAVING ANY NEEDS. CM WILL CONTINUE TO FOLLOW TO ASSIST NEEDED.
--- NOTE | 2019-01-15 12:17 | NUR ---
report received from [facility]/rn IR, rt lateral chest pleurx catheter placement uneventful, pt to be bedrest for one hour, dr. garcia to talk to the pt's , pt to return to his previous diet.
[2019-01-16] VITALS (8 sets, daily range): BP systolic 121–122; BP diastolic 52–53
--- NOTE | 2019-01-16 03:31 | NUR ---
Patient making good progress towards outcome goals. Pain and breathing better after pleurex placement and 1000 cc fluid drained yesterday. Discharge plans to home possibly with home health.
[2019-01-16 05:55] LABS: HEMATOCRIT 26.8 % (42.0-52.0); HEMOGLOBIN 8.7 gm/dL (14.0-18.0); MCH 26.7 pg (26.0-34.0); MCHC 32.6 g/dL (28.0-37.0); MCV 82.1 fL (80.0-100.0); RBC 3.26 mil/uL (4.50-6.00); RDW 14.7 % (10.5-14.5); WBC 9.1 thou/uL (4.0-11.0)
[2019-01-16 06:16] LABS: ALBUMIN 1.8 g/dL (3.4-5.0); CALCIUM 9.9 mg/dL (8.5-10.1); CREATININE 2.1 mg/dL (0.7-1.3); MAGNESIUM 1.7 mg/dL (1.8-2.4); TOTAL BILIRUBIN 0.2 mg/dL (<0.1-1.0); TOTAL PROTEIN 6.5 g/dL (6.4-8.2)
[2019-01-16 06:17] LABS: POTASSIUM 5.7 mmol/L (3.5-5.1)
[2019-01-16] MEDS ORDERED: OXYCODONE-APAP1 EAC6 PO (09:13)
[2019-01-16] MEDS ORDERED: COZAAR 50 MG TA50 M1 PO (09:13)
--- NOTE | 2019-01-16 13:37 | NUR ---
ON-GOING ASSESSMENT: CM REVIEWED CHART AND MET WITH PATIENT AND HIS AND SON AT THE BEDSIDE. PT STATING THAT HE IS WANTING HOSPICE SERVICES AND THAT THEY HAD BEEN IN CONTACT WITH HOSPICE PRIOR TO ADMISSION AND THEY WOULD LIKE USE THEM. CM CONTACTED HOSPICE AND SPOKE WITH [facility] IN ADMISSION WHO STATES THEY CANNOT ADMIT TODAY BUT WILL BE ABLE TO ADMIT TOMORROW AT 1000AM AND ALREADY DISCUSSED WITH . CM CONTACTED DR REYNA AND HE IS OK WITH DISCHARGING PATIENT HOME AND HOSPICE EVAL AND ADMITTING PATIENT ON 01/17/19. HOSPICE AT THAT TIME WILL BE ABLE TO PROVIDE ANY EQUIPTMENT. CM FAXED D/C PAPERWORK TO [facility] AND THEY REPORT NO FURTHER NEEDS FROM AT THIS TIME.
--- NOTE | 2019-01-16 14:12 | NUR ---
Patient left unit at 1410 in wheelchair with transporter/volunteer and family. All belongings with patient and spouse. Telemetry dc'd and IV dc'd before patient discharged from unit. Education packet administered with presciptions given to patients .
== END 2019-01-16 14:19 | disposition hospice, home (50) | DRG 180 ==
LOC: ER 20:18 → EROBS 22:16 → EDBD 22:16 → 3W 22:16 → ENTRNSPT 01-16 13:54 → EDTRNSPTSTS 01-16 13:59 → 3W 01-16 14:19
PROVIDERS: Emergency Medicine; Hospitalist; Nurse Practitioner Family; Radiology Vascular & Interventional Radiology; ADMIT Internal Medicine
PROC: 0W9930Z Drainage of Right Pleural Cavity with Drainage Device, Percutaneous Approach (ICD-10-PCS; principal; 2019-01-15)
DX: C34.90 Malignant neoplasm of unspecified part of unspecified bronchus or lung (principal); E43 Unspecified severe protein-calorie malnutrition; N18.4 Chronic kidney disease, stage 4 (severe); J90 Pleural effusion, not elsewhere classified; N17.9 Acute kidney failure, unspecified; K21.9 Gastro-esophageal reflux disease without esophagitis; E87.5 Hyperkalemia; I12.9 Hypertensive chronic kidney disease with stage 1 through stage 4 chronic kidney disease, or unspecified chronic kidney disease; D63.8 Anemia in other chronic diseases classified elsewhere; Z87.01 Personal history of pneumonia (recurrent); Z79.899 Other long term (current) drug therapy; Z87.891 Personal history of nicotine dependence
CPT/HCPCS: 10879